=== PATIENT | male | born 1965 | race American Indian/Alaskan Native ===

== ENCOUNTER 2016-08-01 10:28 | Emergency (ER) | payer OTHER ==
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
[2016-08-01 12:59] VITALS: RESP 18
[2016-08-01 13:16] VITALS: O2SAT 97
[2016-08-01 14:02] VITALS: BP 122/69; PULSE 85; TEMP 98.1
== END 2016-08-01 14:10 | disposition home or self-care (01) ==
LOC: C.ER 10:28
DX: M54.5 Low back pain (principal)
CPT/HCPCS: 72131; 96372; 99284; J1170; J2765

== ENCOUNTER 2016-10-20 17:34 | Emergency (ER) | payer MEDICAID, OTHER ==
[2016-10-20 18:02] VITALS: BP 109/74; PULSE 59; RESP 16; TEMP 97.8; O2SAT 97
--- NOTE | 2016-10-20 18:19 | C.PDOC ---
History Of Present Illness 51 yo M presents to the ER c/o atraumatic bruise to the distal tip of the R great toe which he noticed this AM. Denies any numbness, decrease in ROM, edema , other joint pain, fever, dizziness, headache, CP, SOB. PMD none Time Seen by Provider: 10/20/16 17:54 Chief Complaint (Nursing): Lower Extremity Problem/Injury Past Medical History Vital Signs: Last Vital Signs Temp 97.8 F 10/20/16 18:00 Pulse 59 L 10/20/16 18:00 Resp 16 10/20/16 18:00 BP 109/74 10/20/16 18:00 Pulse Ox 97 10/20/16 19:05 - Medical History PMH: Hiatal Hernia (as per patient) Family History: States: Diabetes, Hypertension - Social History Hx Alcohol Use: No Hx Substance Use: No - Immunization History Hx Tetanus Toxoid Vaccination: No Hx Influenza Vaccination: No Hx Pneumococcal Vaccination: No Review Of Systems Constitutional: Negative for: Fever, Chills, Weakness Cardiovascular: Negative for: Chest Pain, Palpitations Respiratory: Negative for: Cough, Shortness of Breath Musculoskeletal: Negative for: Neck Pain, Back Pain Skin: Positive for: Bruising. Negative for: Rash, Lesions, Jaundice Neurological: Negative for: Weakness, Numbness Physical Exam - Physical Exam Appears: Well, Non-toxic, No Acute Distress Skin: Normal Color, Warm, Dry, No Rash Head: Atraumatic, Normacephalic Eye(s): bilateral: Normal Inspection, PERRL, EOMI Nose: Normal Oral Mucosa: Moist Neck: Normal, Normal ROM Chest: Symmetrical, No Tenderness Cardiovascular: Rhythm Regular, No Murmur, Other (no irregularity) Respiratory: Normal Breath Sounds, No Accessory Muscle Use, No Rales, No Rhonchi , No Wheezing Extremity: Normal ROM, No Tenderness, No Pedal Edema, No Calf Tenderness, No Capillary Refill, No Deformity, No Swelling, Other Pulses: Left Dorsalis Pedis: Normal, Right Dorsalis Pedis: Normal Neurological/Psych: Oriented x3, Normal Speech, Normal Cognition, Normal Cranial Nerves, Normal Motor, Normal Sensation (R foot: (+) 2.5 cm area of ecchymosis to the distal tip of the R great toe that is tender to palpation, otherwise normal skin color, not cold to touch, FROM, no edema, normal cap refill.) ED Course And Treatment O2 Sat by Pulse Oximetry: 97 Medical Decision Making Medical Decision Makin yo M presents to the ER c/o atraumatic bruise to the distal tip of the R great toe which he noticed this AM. Case d/w ER MD and agrees with current plan of care. XR R great toe ordered. XR R great toe : (-) fracture, (-) dislocation, as read by PA. XR results d/w the pt in great detail. Pt instructed to take otc tylenol prn for pain, was advised to f/u with pmd referral provided in 1-2 days without fail for re-evaluation, instructed to return to the ER at any time for any new or worsening symptoms, especially if he develops any other areas of bruising to the toes. Pt verbalize understanding of instructions, given the opportunity to ask any questions. Disposition Counseled Patient/Family Regarding: Diagnosis, Need For Followup - Disposition Referrals: [facility] [Outside] Disposition: HOME/ ROUTINE Disposition Time: 19:04 Condition: STABLE Additional Instructions: Follow up with referral provided in 1-2 days without fail for re-evaluation, return to the ER at any time for any new or worsening symptoms, especially if you develop any other areas of bruising to the toes. Instructions: Foot Contusion (ED) Forms: Work Excuse Print Language: VATICAN CITIZEN - Clinical Impression Clinical Impression: Bruise of toe - PA / [employer] AIDE / Resident Statement MD/DO has reviewed & agrees with the documentation as recorded.
--- NOTE | 2016-10-21 10:22 | RAD ---
PROCEDURE: Radiographs of the right great toe. TECHNIQUE:: AP radiograph of the right foot, with oblique and lateral view of the right great toe. COMPARISON: None. FINDINGS: BONES: Normal. No fracture. JOINTS: Normal. SOFT TISSUES: Normal. OTHER FINDINGS: None. IMPRESSION: Normal right great toe radiographs.
== END 2016-10-20 19:19 | disposition home or self-care (01) ==
LOC: C.ER 17:34
DX: S90.111A Contusion of right great toe without damage to nail, initial encounter (principal); X58.XXXA Exposure to other specified factors, initial encounter

== ENCOUNTER 2016-11-29 16:59 | Emergency (ER) | payer MEDICAID, OTHER ==
[2016-11-29 17:48] VITALS: BP 105/68; PULSE 69; RESP 18; TEMP 97.9; O2SAT 97
--- NOTE | 2016-11-29 18:31 | C.PDOC ---
History Of Present Illness Pt c/o low back pain after moving something heavy at work today. Time Seen by Provider: 11/29/16 17:59 Chief Complaint (Nursing): Back Pain History Per: Patient Onset/Duration Of Symptoms: Hrs (today) Current Symptoms Are (Timing): Still Present Quality Of Discomfort: "Pain" Severity: Moderate Previous Symptoms: Back Pain, Prior Injury Associated Symptoms: None Exacerbating Factor(s): Movement Additional History Per: Prior Records Past Medical History Reviewed: Historical Data, Nursing Documentation, Vital Signs Vital Signs: Last Vital Signs Temp 97.9 F 11/29/16 17:48 Pulse 69 11/29/16 17:48 Resp 18 11/29/16 17:48 BP 105/68 11/29/16 17:48 Pulse Ox 97 11/29/16 18:31 - Medical History PMH: Back Problems, Hiatal Hernia (as per patient) Family History: States: Unknown Family Hx, Diabetes, Hypertension - Social History Hx Alcohol Use: No Hx Substance Use: No - Immunization History Hx Tetanus Toxoid Vaccination: No Hx Influenza Vaccination: No Hx Pneumococcal Vaccination: No Review Of Systems Except As Marked, All Systems Reviewed And Found Negative. Constitutional: Negative for: Fever Cardiovascular: Negative for: Chest Pain Respiratory: Negative for: Shortness of Breath Gastrointestinal: Negative for: Vomiting, Abdominal Pain Genitourinary: Negative for: Dysuria, Incontinence, Hematuria Musculoskeletal: Positive for: Back Pain. Negative for: Neck Pain, Leg Pain Skin: Negative for: Rash Neurological: Negative for: Weakness, Numbness Physical Exam - Physical Exam Appears: Non-toxic, No Acute Distress Skin: Normal Color, Warm, Dry, No Rash Head: Atraumatic, Normacephalic Eye(s): bilateral: Normal Inspection, PERRL, EOMI Neck: Normal ROM, Supple Cardiovascular: Rhythm Regular Respiratory: Normal Breath Sounds, No Accessory Muscle Use Gastrointestinal/Abdominal: Soft, No Tenderness Back: No CVA Tenderness, Paraspinal Tenderness (lumbar) Extremity: Normal ROM Neurological/Psych: Oriented x3, Normal Motor, Normal Sensation ED Course And Treatment O2 Sat by Pulse Oximetry: 97 Pulse Ox Interpretation: Normal Reassessment Condition: Improved Disposition Counseled Patient/Family Regarding: Studies Performed, Diagnosis, Need For Followup, Rx Given - Disposition Disposition: HOME/ ROUTINE Disposition Time: 18:34 Condition: IMPROVED Additional Instructions: Follow up with your doctor for further evaluation and treatment. Return to the ER if you develop weakness, numbness, abdominal pain, trouble urinating, worsening of symptoms or if you have any other concerns. Prescriptions: Cyclobenzaprine [Cyclobenzaprine HCl] 10 mg PO TID PRN #15 tab PRN Reason: Muscle Spasm Naproxen [Naprosyn] 1 tab PO BID PRN #20 tab PRN Reason: Pain Instructions: Acute Low Back Pain (ED) Forms: [employer] (Hebrew) - Clinical Impression Clinical Impression: Lumbosacral strain
== END 2016-11-29 18:49 | disposition home or self-care (01) ==
LOC: C.ER 16:59
DX: S39.012A Strain of muscle, fascia and tendon of lower back, initial encounter (principal); X50.0XXA Overexertion from strenuous movement or load, initial encounter; Y93.89 Activity, other specified; Y92.89 Other specified places as the place of occurrence of the external cause; Y99.0 Civilian activity done for income or pay
CPT/HCPCS: 96372; 99283; J1885

== ENCOUNTER 2016-12-12 12:24 | Observation (INO) | payer MEDICAID ==
[2016-12-12 12:32] VITALS: TEMP 97.5
[2016-12-12 13:27] LABS: BASO # 0.1 K/uL (0.0-0.2); BASO % 0.9 % (0.0-2.0); EOS # 0.2 K/uL (0.0-0.7); EOS % 2.6 % (0.0-4.0); HEMATOCRIT 44.3 % (35.0-51.0); LYMPH # 2.3 K/uL (1.0-4.3); LYMPH % 39.5 % (20.0-40.0); MEAN CELL VOLUME 82.3 fL (80.0-94.0); MEAN CORPUSCULAR HEMOGLOBIN 26.8 pg (27.0-31.0); MEAN CORPUSCULAR HGB CONC 32.6 g/dL (33.0-37.0); MEAN PLATELET VOLUME 8.7 fL (7.2-11.7); MONO # 0.6 K/uL (0.0-0.8); MONO % 9.7 % (0.0-10.0); NRBC % 0.1 % (0.0-2.0); RED CELL DISTRIBUTION WIDTH 14.4 % (11.5-14.5); WHITE BLOOD COUNT 5.9 K/uL (4.8-10.8)
[2016-12-12 13:35] LABS: CHLORIDE 100 mmol/L (98-107); SODIUM 140 mmol/L (132-148)
[2016-12-12 13:37] LABS: ALKALINE PHOSPHATASE 41 U/L (38-126); AST/SGOT 23 U/L (17-59); BILIRUBIN,TOTAL 0.7 mg/dL (0.2-1.3); CARBON DIOXIDE 27 mmol/L (22-30); GFR AFRICAN-AMERICAN > 60; TOTAL PROTEIN 7.3 g/dL (6.3-8.3)
[2016-12-12 13:38] LABS: ALB/GLOB RATIO 1.1 (1.0-2.1); ALT/SGPT 21 U/L (21-72); BLOOD UREA NITROGEN 14 mg/dL (9-20); CALCIUM 9.2 mg/dl (8.6-10.4); GLUCOSE,RANDOM 86 mg/dL (75-110)
--- NOTE | 2016-12-12 13:38 | C.PDOC ---
History Of Present Illness 51 year old male presents to the ED with complaints of constant left sided llocalized, non-radiating chest pain with occasional shortness of breath, chills, and epigastric abdominal pain for three days. Patient has a history of back pain and denies having a PMD. pt taking naproxen and flexeril for cp with no relief. pt took Pepto Bismol and Tums with no relief for abdominal pain. Patient denies fever, cough, nausea, vomiting, or diarrhea. Time Seen by Provider: 12/12/16 12:43 Chief Complaint (Nursing): Chest Pain History Per: Patient History/Exam Limitations: no limitations Onset/Duration Of Symptoms: Days (3 days) Current Symptoms Are (Timing): Still Present Quality: Sharp Associated Symptoms: denies: Nausea, Dyspnea, Diaphoresis, Syncope Modifying Factors: None Alleviating Factors: None Recent travel outside of the [place]: No Past Medical History Reviewed: Historical Data, Nursing Documentation, Vital Signs Vital Signs: Last Vital Signs Temp 97.5 F L 12/12/16 12:30 Pulse 79 12/12/16 15:17 Resp 15 12/12/16 15:17 BP 128/79 12/12/16 15:17 Pulse Ox 97 12/12/16 19:12 - Medical History PMH: Back Problems, Hiatal Hernia (as per patient) Surgical History: No Surg Hx Family History: States: CAD (father with cardiac surgery last year. unk reason.) , Diabetes, Hypertension - Social History Hx Tobacco Use: No Hx Alcohol Use: Yes (occasional) Hx Substance Use: Yes (ex cocaine user) - Immunization History Hx Tetanus Toxoid Vaccination: Yes Hx Influenza Vaccination: No Hx Pneumococcal Vaccination: No Review Of Systems Constitutional: Positive for: Chills. Negative for: Fever Cardiovascular: Positive for: Chest Pain. Negative for: Palpitations Respiratory: Positive for: Shortness of Breath. Negative for: Cough Gastrointestinal: Positive for: Abdominal Pain. Negative for: Nausea, Vomiting , Diarrhea Neurological: Negative for: Weakness, Numbness Physical Exam - Physical Exam Appears: Non-toxic, No Acute Distress Skin: Warm, Dry Head: Atraumatic Eye(s): bilateral: Normal Inspection, EOMI Oral Mucosa: Moist Neck: Normal ROM, Supple Chest: Symmetrical, No Deformity, Tenderness (reproducible left chest wall tenderness, superior and medial to the nipple) Cardiovascular: Rhythm Regular, No Murmur Respiratory: Normal Breath Sounds, No Rales, No Rhonchi, No Wheezing Gastrointestinal/Abdominal: Soft, Tenderness (epigastric tenderness), No Distention, No Guarding, No Rebound Back: No CVA Tenderness Extremity: Normal ROM, No Tenderness, No Pedal Edema, No Calf Tenderness, Capillary Refill (good capillary refill, less than two seconds ), No Deformity, No Swelling Neurological/Psych: Oriented x3, Normal Speech, Normal Cognition, Normal Motor, Normal Sensation ED Course And Treatment - Laboratory Results Result Diagrams: 12/12/16 13:23 12/12/16 13:23 ECG: Interpreted By Me, Viewed By Me ECG Rhythm: Sinus Rhythm Rate From EC O2 Sat by Pulse Oximetry: 97 (room air ) - Radiology CXR: Read By Radiologist CXR Interpretation: Yes: No Acute Disease Progress Note: EKG and labs were ordered. Patient was given pepcid and aspirin. Repeat EKG was NSR at 70 bpm. Medical Decision Making Medical Decision Making: pt still with chest pain and ab discomfort. will place on obs for repeat ce and ekg. 710 pm pt with no cp or ab pain at this time, will repeat ekg, d.c with cards and [id number] outpt f/u Disposition Counseled Patient/Family Regarding: Studies Performed, Diagnosis, Need For Followup - Disposition Disposition: HOME/ ROUTINE Disposition Time: 19:11 Condition: STABLE - Clinical Impression Clinical Impression: Chest pain - Scribe Statement The provider has reviewed the documentation as recorded by the Scribe Gisselle Etienne All medical record entries made by the Scribe were at my direction and personally dictated by me. I have reviewed the chart and agree that the record accurately reflects my personal performance of the history, physical exam, medical decision making, and the department course for this patient. I have also personally directed, reviewed, and agree with the discharge instructions and disposition. Decision To Admit - Pt Status Changed To: Hospital Disposition Of: Observation - . Bed Request Type: ED Observation Admitting Physician: Judie Romero Patient Diagnosis: Chest pain
[2016-12-12 13:58] LABS: POTASSIUM 4.1 mmol/L (3.6-5.2)
[2016-12-12 15:18] VITALS: BP 128/79; PULSE 79; RESP 15
[2016-12-12 15:23] VITALS: O2SAT 97
[2016-12-12] MEDS ORDERED: Aluminum Hydroxide/Magnesium Hydroxide Susp (30 mL) PO STA (15:26)
[2016-12-12] MEDS ORDERED: Aluminum Hydroxide/Magnesium Hydroxide Susp (30 mL) ONE (15:49)
--- NOTE | 2016-12-12 15:55 | RAD ---
HISTORY: cp left side COMPARISON: No prior. TECHNIQUE: Chest PA and lateral FINDINGS: LUNGS: No active pulmonary disease. PLEURA: No significant pleural effusion identified. No pneumothorax apparent. CARDIOVASCULAR: Normal. OSSEOUS STRUCTURES: No significant abnormalities. VISUALIZED UPPER ABDOMEN: Normal. OTHER FINDINGS: None. IMPRESSION: No active disease.
--- NOTE | 2016-12-14 11:43 | CARD ---
APPROVED REPORT EKG Measurement Heart [id number] <Conclusion> Normal sinus rhythm Normal ECG
--- NOTE | 2016-12-14 11:46 | CARD ---
APPROVED REPORT EKG Measurement Heart [id number] <Conclusion> Normal sinus rhythm Normal ECG
== END 2016-12-12 19:11 | disposition home or self-care (01) ==
LOC: C.ER 12:24 → C.9OBSV 15:27
PROVIDERS: ADMIT Emergency Medicine; ATTEND Emergency Medicine
DX: R07.9 Chest pain, unspecified (principal)
CPT/HCPCS: 71020; 80053; 84484; 85025; G0378

== ENCOUNTER 2017-05-29 09:00 | Emergency (ER) | payer MEDICAID ==
[2017-05-29 09:21] VITALS: BMI 28.2
[2017-05-29] MEDS ORDERED: Oxycodone/Acetaminophen 5/325 mg Tab PO STA (09:22)
[2017-05-29 09:23] VITALS: RESP 18
[2017-05-29] MEDS ORDERED: Oxycodone/Acetaminophen 5/325 mg Tab ONE (09:27)
[2017-05-29 11:06] VITALS: BP 120/80; PULSE 72; TEMP 98.2; O2SAT 99
--- NOTE | 2017-05-29 11:53 | C.PDOC ---
History Of Present Illness 51 y/o male present to the ER for evaluation of chronic back pain. Patient states that he was brushing his teeth when he felt pain in his lower back today. Patient is also complaining of an inguinal hernia. Patient denies any bowel/ bladder incontinence, spinal anaesthesia, and recent trauma. Chief Complaint (Nursing): Back Pain History Per: Patient History/Exam Limitations: no limitations Onset/Duration Of Symptoms: Days Current Symptoms Are (Timing): Still Present Severity: Moderate Past Medical History Reviewed: Historical Data, Nursing Documentation, Vital Signs Vital Signs: Last Vital Signs Temp 98.2 F 05/29/17 11:05 Pulse 72 05/29/17 11:05 Resp 18 05/29/17 11:05 BP 120/80 05/29/17 11:05 Pulse Ox 99 05/29/17 12:01 - Medical History PMH: Back Problems, Hiatal Hernia (as per patient) Other Surgeries: Hx of surgeries Family History: States: CAD (father with cardiac surgery last year. unk reason.) , Diabetes, Hypertension - Social History Hx Tobacco Use: No Hx Alcohol Use: No (occasional) Hx Substance Use: Yes (ex cocaine user) - Immunization History Hx Tetanus Toxoid Vaccination: No Hx Influenza Vaccination: No Hx Pneumococcal Vaccination: No Review Of Systems Except As Marked, All Systems Reviewed And Found Negative. Genitourinary: Negative for: Incontinence Musculoskeletal: Positive for: Back Pain Physical Exam - Physical Exam Appears: Non-toxic, No Acute Distress Skin: Normal Color, Warm Head: Atraumatic, Normacephalic Eye(s): bilateral: Normal Inspection Nose: Normal Oral Mucosa: Moist Neck: Supple Chest: Symmetrical Cardiovascular: Rhythm Regular Respiratory: Normal Breath Sounds, No Accessory Muscle Use, No Rales, No Rhonchi , No Wheezing Gastrointestinal/Abdominal: Normal Exam, Soft, No Tenderness, Hernia (left inguinal hernia) Back: Other (diffuse lower back tenderness) Extremity: Normal ROM Neurological/Psych: Oriented x3, Normal Speech, Normal Motor, Normal Sensation ED Course And Treatment O2 Sat by Pulse Oximetry: 99 (RA) Pulse Ox Interpretation: Normal Medical Decision Making Medical Decision Making: Plan: --Flexeril --Toradol --Percocet Disposition - Disposition Referrals: [facility] [Outside] [facility] [Outside] Disposition: HOME/ ROUTINE Disposition Time: 10:30 Condition: IMPROVED Additional Instructions: Thank you for letting us take care of you today. The emergency medical care you received today was directed at your acute symptoms. If you were prescribed any medication, please fill it and take as directed. It may take several days for your symptoms to resolve. Return to the Emergency Department if your symptoms worsen, do not improve, or if you have any other problems. Please contact your doctor or call one of the physicians/clinics you have been referred to that are listed on the Patient Visit Information form that is included in your discharge packet. Bring any paperwork you were given at discharge with you along with any medications you are taking to your follow up visit. Our treatment cannot replace ongoing medical care by a primary care provider (PCP) outside of the emergency department. Thank you for allowing the [facility] team to be part of your care today. Follow up with the clinic this week for a follow up appointment. Prescriptions: Cyclobenzaprine [Cyclobenzaprine HCl] 10 mg PO Q8 PRN #20 tab PRN Reason: Muscle Spasm oxyCODONE [oxyCODONE Immediate Release Tab] 5 mg PO Q6 PRN #5 tab PRN Reason: Pain, Severe (8-10) predniSONE [Prednisone] 40 mg PO DAILY #10 tab Instructions: Inguinal Hernia (ED), Chronic Back Pain (ED) Forms: [employer] (Ukrainian) - Clinical Impression Clinical Impression: Low back pain - Scribe Statement The provider has reviewed the documentation as recorded by the Bartibramon Carlson Provider Attestation: All medical record entries made by the Scribe were at my direction and personally dictated by me. I have reviewed the chart and agree that the record accurately reflects my personal performance of the history, physical exam, medical decision making, and the department course for this patient. I have also personally directed, reviewed, and agree with the discharge instructions and disposition.
== END 2017-05-29 11:06 | disposition home or self-care (01) ==
LOC: C.ER 09:00
DX: M54.5 Low back pain (principal)
CPT/HCPCS: 96372; 99284; J1885